=== PATIENT | male | born 1960 | race Caucasian/White ===

== ENCOUNTER 2021-10-03 12:49 | Outpatient (RCR) | payer SELFPAY ==
[2021-10-03 12:52] VITALS: BMI 39.8
[2021-11-14 12:56] VITALS: BMI 38.4
== END 2021-11-14 13:12 | disposition home or self-care (01) ==
LOC: ANHDMC 12:49
PROVIDERS: PCP Family Medicine; Visit Provider Family Medicine
DX: E66.9 Obesity, unspecified (principal); Z71.3 Dietary counseling and surveillance
CPT/HCPCS: 97802

== ENCOUNTER 2023-09-01 14:12 | Outpatient (CLI) | payer OTHER, SELFPAY ==
--- NOTE | ~2023-09-01 | CT_ITS ---
CT Scan of the Chest without Contrast: Clinical Indication: Lung cancer screening, personal history of nicotine dependence Technique: Contiguous sections were acquired throughout the chest without intravenous contrast. Dose reduction technique was used on this scan by utilizing automated exposure control and iterative recon struction technique. The dose-length product (DLP) was 440.99 mGy-cm. COMPARISON: 02/24/2018 Findings: There is no evidence of any significant mediastinal, hilar or axillary lymphadenopathy. The mediastin al soft tissues appear normal. There is no evidence of pleural or pericardial effusion. The lungs are clear. No pulmonary nodules or infiltrates are noted. Images through the upper abdomen reveal no abnormalities. Impression: Lung RADS 1: Negative. 12 month follow-up screening CT advised. Reviewed, dictated and finalized at location . [facility] Impression: Lung RADS 1: Negative. 12 month follow-up screening CT advised.
== END 2023-09-01 14:13 | disposition home or self-care (01) ==
PROVIDERS: PCP Physician Assistant; Visit Provider Physician Assistant
DX: Z12.2 Encounter for screening for malignant neoplasm of respiratory organs (principal); F17.200 Nicotine dependence, unspecified, uncomplicated
CPT/HCPCS: 71271

== ENCOUNTER 2025-04-22 12:33 | Emergency (ER) | payer OTHER, SELFPAY ==
--- NOTE | ~2025-04-22 | XR_ITS ---
EXAMINATION: XR chest 2V DATE: 04/22/2025 13:24 INDICATION: Food impaction. Vomiting after eating. TECHNIQUE: PA and lateral views of the chest were obtained. COMPARISON: Chest radiograph dated 06/10/[address] dated 09/01/2023 FINDINGS: The lungs remain clear with no focal airspace opacities, pulmonary edema, pleural effusion or pneumot horax. The cardiomediastinal silhouette is normal. Mild thoracic and upper lumbar spondylosis. IMPRESSION: 1. No acute cardiopulmonary disease. Reviewed, dictated and finalized at location A.
[2025-04-22 12:38] VITALS: BP 178/75; PULSE 86; RESP 16; TEMP 36.4; O2SAT 99
--- NOTE | 2025-04-22 12:52 | ED_ITS ---
HPI - Skin/Abscess/Foreign Bdy General Chief complaint: Skin/Abscess/Foreign Body Stated complaint: Food goes down but jams up-then vomits Time Seen by Provider: 04/22/25 12:42 History of Present Illness HPI narrative: 64-year-old male presenting to the emergency department with signs and symptoms of a food bolus impaction. He states for last several weeks he has had some intermittent difficulties eating where he feels like food is getting stuck in the lower part of his esophagus and not going into his stomach. This has been slowly bring over last few weeks and then yesterday he ate some pizza this morning and felt like it got stuck and not moving and feels a fullness in his epigastric region retrosternally. Since then he has been vomiting any oral intake that he has had even soft food and liquids. He had some black coffee this morning afterwards and vomited that up immediately. He is not able to tolerate oral intake but is tolerating his secretions not having any difficulty breathing or chest tightness. Endorses no nausea or vomiting until he takes oral intake and then feels profoundly nauseous and vomits. No lower abdominal pain, traumatic injuries or recent surgical procedures. No history of endoscopies before. No history of GERD or gastritis. No history of strictures to his knowledge. Related Data Home Medications ?Medication ?Instructions ?Recorded ?Confirmed ?Last Taken ?Type amlodipine 10 mg tablet 10 mg PO DAILY 05/09/20 06/07/20 Unknown History losartan 100 mg tablet 100 mg PO DAILY 05/09/20 06/07/20 Unknown History Allergies Allergy/AdvReac Type Severity Reaction Status Date / Time No Known Allergies Allergy Verified 04/22/25 12:35 Review of Systems 2 Review of Systems: As reviewed above in HPI [facility] Past Medical History Medical History (Updated 04/22/25 @ 14:54 by Yakov Schwarz MD) HTN (hypertension) Anxiety Surgical History Surgical History H/O left breast biopsy Family History Family History Father Cancer Mother Cancer Unknown Heart disease Social History Social History Smoking status: Current some day smoker Tobacco type: cigarettes Alcohol intake: never Substance use: never Living arrangements: with family Occupation/Education: unemployed Additional occupation/education comments: Disabled Gender identity (if verbalized by the patient): Male Spiritual care concerns: No Exam 2 Narrative: GENERAL: Uncomfortable appearing but not any acute distress HEAD: [Normocephalic, atraumatic.] EYES: [PERRLA and EOMI.] ENT: Nares clear, no rhinorrhea or epistaxis. Mucous membranes moist. NECK: Supple. CHEST: [Clear to auscultation. No respiratory distress.] HEART: [Regular rate and rhythm]. No murmur heard. [Normal peripheral pulses.] ABDOMEN: [Soft, nondistended], [nontender], [No rigidity or guarding] EXTREMITIES: Normal range of motion. [No edema.] SKIN: Warm, dry, no rash. NEURO: [No focal deficits]. Alert and oriented [x3.] PSYCH: [Normal mood and affect.] Course Vital Signs Vital signs: Vital Signs Temperature 36.4 C L 04/22/25 12:38 Pulse Rate 86 04/22/25 12:38 Respiratory Rate 16 04/22/25 12:38 Blood Pressure 178/75 H 04/22/25 12:38 Pulse Oximetry 99 04/22/25 12:38 Temperature 36.4 C L 04/22/25 12:38 Pulse Rate 86 04/22/25 12:38 Respiratory Rate 16 04/22/25 15:12 Blood Pressure 178/75 H 04/22/25 12:38 Pulse Oximetry 99 04/22/25 12:38 MDM - Skin/Abscess/Foreign Bdy MDM Narrative Medical decision making narrative: 64-year-old male presenting to the emergency department with signs and symptoms of a food bolus impaction. He states for last several weeks he has had some intermittent difficulties eating where he feels like food is getting stuck in the lower part of his esophagus and not going into his stomach. This has been slowly bring over last few weeks and then yesterday he ate some pizza this morning and felt like it got stuck and not moving and feels a fullness in his epigastric region retrosternally. Since then he has been vomiting any oral intake that he has had even soft food and liquids. He had some black coffee this morning afterwards and vomited that up immediately. He is not able to tolerate oral intake but is tolerating his secretions not having any difficulty breathing or chest tightness. Endorses no nausea or vomiting until he takes oral intake and then feels profoundly nauseous and vomits. No lower abdominal pain, traumatic injuries or recent surgical procedures. No history of endoscopies before. No history of GERD or gastritis. No history of strictures to his knowledge. Patient has reassuring vital signs aside from some mild hypertension. Likely reactive to the painful experience he is having at the moment consistent with food bolus impaction and nausea and vomiting after trying to ingest any oral intake. We will try conservative therapies and then if unsuccessful have endoscopic evaluation by GI. IV was established, two-view chest x-rays obtained as well as an EKG and basic laboratory studies. He was given Zofran and Pepcid pre treatment prior to intramuscular glucagon for lower esophageal sphincter relaxation. Patient re-evaluated after treatments and had complete resolution of his symptoms and no longer felt any blockage in his esophagus. He was able tolerate full oral intake here with tolerating liquids 1st and then tolerating a meal without difficulty. No nauseousness or vomiting. Successfully treated with glucagon. Patient sent home with Pepcid and Zofran as needed and refer to GI for outpatient evaluation for outpatient endoscopy as needed. Patient given return precautions and discharge. Medical Records Attestation: I reviewed the patient's medical records. Lab Data Attestation: I reviewed the patient's lab results. 04/22/25 13:04 04/22/25 13:04 Labs: Lab Results 04/22/25 Range/Units 13:04 WBC 7.7 (4.5-10.0) K/mm3 RBC 4.81 (4.6-6.20) M/mm3 Hgb 14.2 (14.0-18.0) g/dL Hct 42.8 (42.0-52.0) % MCV 89.0 (80-100) fl MCH 29.5 (26-34) pg MCHC 33.2 (32-36) g/dl RDW 12.7 (11.5-14.5) % Plt Count 273 (150-375) k/mm3 MPV 10.7 H (7.4-10.4) fl Immature Gran % (Auto) 0.3 (0-0.5) % Neut % (Auto) 64.8 (45.5-73.1) % Lymph % (Auto) 22.9 (18.3-44.2) % Will % (Auto) 8.5 (2.6-8.5) % Eos % (Auto) 3.1 (0-4.4) % Baso % (Auto) 0.4 (0.2-1.2) % Lymph # (Auto) 1.76 (0.9-3.2) K/mm3 Will # (Auto) 0.7 H (0.1-0.6) K/mm3 Eos # (Auto) 0.2 (0-0.3) K/mm3 Baso # (Auto) 0.0 (0.0-0.1) K/mm3 Abs Immat Gran (auto) 0.02 (0.00-0.031) K/mm3 Absolute Neuts (auto) 5.0 (1.3-6.7) K/mm3 Absolute Nucleated RBC 0.000 (0.0-0.012) K/mm3 Nucleated RBC % 0.0 (0.0-0.2) % Sodium 137 (137-145) mmol/L Potassium 3.1 L (3.4-5.0) mmol/L Chloride 101 (98-107) mmol/L Carbon Dioxide 25 (22-30) mmol/L Anion Gap 11 (4-12) mmol/L BUN 9 (9-20) mg/dL Creatinine 0.83 (0.7-1.3) mg/dL Estim Creat Clear Calc 109 ml/min Estimated GFR > 60 (59 - ) Glucose 125 H (65-110) mg/dL Calcium 9.6 (8.4-10.2) mg/dL Total Bilirubin 1.4 H (0.2-1.3) mg/dL AST 33 (17-59) U/L ALT 22 (6-50) U/L Alkaline Phosphatase 96 (38-126) U/L Total Protein 8.0 (6.3-8.2) g/dL Albumin 4.6 (3.5-5.1) g/dL Imaging Data Attestation: I personally reviewed and interpreted this imaging study as follows: My impression: Impressions Chest X-Ray 04/22/25 13:31 IMPRESSION: 1. No acute cardiopulmonary disease. Discharge Plan Discharge Clinical Impression: Food impaction of esophagus Patient Disposition: Home Condition: Stable Instructions: Antibiotic Form, Diet for Stomach Ulcers and Gastritis (ED), Dysphagia (ED) Additional Instructions: Your symptoms sound like they could be related to esophageal food impaction, stricture formation, or gastritis and food sticking into your esophagus. This seemed to have resolved during her ER visit here today with some medications. We will prescribe be some medications to take at home for continued symptom control but he needs to see a GI doctor on outpatient basis for endoscopy and final evaluation. If you have recurrence of impaction or inability to swallow with vomiting please return to the ER at that time Patient Language: [place] Prescriptions: New famotidine [Pepcid] 20 mg tablet 20 mg PO BID Qty: 20 0RF ondansetron 4 mg tablet,disintegrating 4 mg PO Q8H PRN (Reason: nausea and vomiting) Qty: 10 0RF No Action amlodipine 10 mg tablet 10 mg PO DAILY losartan 100 mg tablet 100 mg PO DAILY Follow-up/Referrals: Natalio,GRAHAM Grimaldo [Primary Care Provider] - Jake Stokes MD [Physician] - 2 Days (Fluid bolus resolved in the ER) Time of Disposition: 14:55
--- NOTE | 2025-04-22 12:55 | ECG_ITS ---
Test Date: 2025-04-22 13:10:42 Measurements Intervals [place] Rate: 78 P: 82 CO: 188 QRS: -13 QRSD: 99 T: 24 QT: 379 QTc: 433 Interpretive Statements SINUS RHYTHM NORMAL ECG No previous ECG available for comparison Electronically Signed On 04-22-2025 14:43:21 CDT by Venkatesh Ramírez D.O.
[2025-04-22] MEDS: FAMOTIDINE 20 MG/2 ML VIAL IV PUSH (13:03)
[2025-04-22] MEDS: ONDANSETRON INJ 4 MG/2 ML VIAL IV PUSH (13:04)
[2025-04-22] MEDS: GLUCAGON FOR INJ 1 MG VIAL IM (13:08)
[2025-04-22 13:10] LABS: Hematocrit 42.8 % (42.0-52.0); Hemoglobin 14.2 g/dL (14.0-18.0); Immature Granulocyte Percent A 0.3 % (0-0.5); Lymphocytes Absolute Auto 1.76 K/mm3 (0.9-3.2); Mean Corpuscular HGB Conc 33.2 g/dl (32-36); Mean Corpuscular Hemoglobin 29.5 pg (26-34); Mean Corpuscular Volume 89.0 fl (80-100); Nucleated Red Blood Cells Absolute Auto 0.000 K/mm3 (0.0-0.012); Nucleated Red Blood Cells Perc 0.0 % (0.0-0.2); Platelet Count Result 273 k/mm3 (150-375); Red Blood Count 4.81 M/mm3 (4.6-6.20); White Blood Count 7.7 K/mm3 (4.5-10.0)
[2025-04-22 13:29] LABS: Alanine Aminotransferase 22 U/L (6-50); Albumin Level 4.6 g/dL (3.5-5.1); Alkaline Phosphatase 96 U/L (38-126); Anion Gap 11 mmol/L (4-12); Aspartate Amino Transferase 33 U/L (17-59); Bilirubin,Total 1.4 mg/dL (0.2-1.3); Blood Urea Nitrogen 9 mg/dL (9-20); Calcium 9.6 mg/dL (8.4-10.2); Carbon Dioxide 25 mmol/L (22-30); Chloride 101 mmol/L (98-107); Estimated CRCL calculation 109 ml/min; Estimated Glomerular Filt Rate > 60; Glucose 125 mg/dL (65-110); Potassium 3.1 mmol/L (3.4-5.0); Sodium 137 mmol/L (137-145); Total Protein 8.0 g/dL (6.3-8.2)
--- NOTE | 2025-04-22 14:41 | PC.NURSE ---
Tolerated water and crackers with no choking or vomiting.
[2025-04-22 15:12] VITALS: RESP 16
== END 2025-04-22 15:14 | disposition home or self-care (01) ==
PROVIDERS: Emergency Provider Student in an Organized Health Care Education/Training Program; PCP Physician Assistant
DX: T18.128A Food in esophagus causing other injury, initial encounter (principal); I10 Essential (primary) hypertension; F17.210 Nicotine dependence, cigarettes, uncomplicated; W44.F3XA Food entering into or through a natural orifice, initial encounter
CPT/HCPCS: 36415; 71046; 80053; 85025; 93005; 96372; 96374; 96375; 99284; J1610; J2405